=== PATIENT | male | born 1935 | race Caucasian/White ===

== ENCOUNTER 2023-10-28 09:44 | Day surgery (SDC) | payer MEDICARE, OTHER ==
--- NOTE | 2023-10-28 09:16 | HP ---
DATE OF SURGERY: 10/28/2023 HISTORY OF PRESENT ILLNESS: The patient is an 88-year-old with history of renal failure, on hemodialysis now and desires peritoneal dialysis access. PAST MEDICAL HISTORY: Renal failure. Cataracts. Hypertension. Thyroid disease. Gastroenteropathy. Osteoarthritis. Prostate problems. Diabetes mellitus type II. PAST SURGICAL HISTORY: Hernia repair. Cholecystectomy. Cataracts. MEDICATIONS: Insulin Detemir, levothyroxine, glipizide, finasteride, docusate sodium, artificial tears. ALLERGIES: AMMONIA. FAMILY HISTORY: Negative in regards to this problem. SOCIAL HISTORY: No smoking or alcohol abuse. REVIEW OF SYSTEMS: Twelve systems reviewed. No chest pain or palpitations. Other systems negative or noncontributory as above and per preadmission questionnaire. PHYSICAL EXAMINATION: Height 5 feet 10 inches. BMI 25.97. GENERAL: No acute distress. HEENT: Sclerae nonicteric. EOMI. Oral mucous membranes moist. NECK: No JVD. CHEST: Equal excursion, nonlabored breathing. CVS: Regular rate and rhythm. ABDOMEN: Soft. EXTREMITIES: No cyanosis or edema. NEURO: Alert, oriented, moving extremities symmetrically. PSYCH: Appropriate mood and affect. SKIN: Dry. IMPRESSION: Renal failure. Desires peritoneal dialysis access. I feel the patient is a candidate. Risks and benefits explained in detail but not limited to bleeding or infection, risk of trocar injury or hernia. Risk of bowel, bladder or blood vessel injury. Risk of adhesion, scar formation or obstruction. Risk of aches or pains possibly chronic, possible poor function or nonfunctioning catheter possibly requiring repositioning or replacement. Risk of catheter failing to work possibly requiring long-term hemodialysis. He understands and agrees to procedure. Will proceed with laparoscopic peritoneal dialysis catheter placement possible open as an outpatient. Otherwise, continue medication for hypertension, diabetes, thyroid disease and arthritis as an outpatient.
[~2023-10-28 09:44] MED LIST: Sensorcaine 0.25% 10 ML ONE
[2023-10-28] MEDS ORDERED: Nimbex 20MG/10 Ml Vial (HIGH RISK MED) IV ONE (09:45)
[2023-10-28] MEDS ORDERED: CEFAZOLIN 2 GM-D5W BAG** 2 GM/50 ML ML IV ONE (10:29)
[2023-10-28] MEDS ORDERED: Lactated Ringers 1,000 ML IV SCH (10:30)
[2023-10-28] MEDS: Sodium Chloride 0.9% 1000 ML 1,000 ML IV SCH (10:33)
[2023-10-28] MEDS: CEFAZOLIN 2 GM-D5W BAG** 2 GM/50 ML ML IV SCH (10:33)
[2023-10-28 10:50] VITALS: RESP 16
[2023-10-28 11:00] LABS: Absolute Neutrophil Ct (ANC) 4.96 x10^3/uL (1.4-6.9); BASOPHIL % 0.8 % (0.0-0.4); Basophil (Absolute #) 0.06 x10^3/uL (0-0.4); Eosinophil (Absolute #) 0.07 x10^3/uL (0-0.5); Hematocrit 31.8 % (42-50); Hemoglobin 10.2 g/dL (12.5-18.0); IMMATURE GRAN # 0.02 x10^3u/L (0.00-0.03); IMMATURE GRAN % 0.3 % (0.00-0.4); Lymphocytes % 20.5 % (24.0-44.0); Mean Cell Volume 98.5 fL (78-100); Mean Corpuscular Hemoglobin 31.6 pg (26-32); Mean Corpuscular Hgb Concent. 32.1 g/dL (32-36); Mean Platelet Volume 10.7 fL (7.5-11.0); Monocyte (Absolute #) 0.72 x10^3/uL (0.0-1.3); Monocytes % 9.8 % (0.0-12.0); Neutrophil % 67.6 % (36.0-66.0); Platelet Count 105 x10^3/uL (150-450); Red Blood Count 3.23 x10^6/uL (4.1-5.6); Red Cell Distribution Width 13.1 % (11.5-14.0); White Blood Count 7.3 x10^3/uL (4.0-10.5)
[2023-10-28 11:21] LABS: ALBUMIN 3.6 g/dL (3.5-5.0); ANION GAP 17.1 MEQ/L (5-15); BILIRUBIN,TOTAL 0.4 mg/dL (0.2-1.3); Calcium 8.5 mg/dL (8.4-10.2); Creatinine 1 7.14 mg/dL (0.66-1.25); EST GLOMERULAR FILTRATION RATE 6.8 ML/MIN; Potassium 4.9 mmol/L (3.5-5.1); Total Protein 7.2 g/dL (6.3-8.2)
[2023-10-28] MEDS ORDERED: SUBLIMAZE 100 MCG/2 ML ONE (12:16)
[2023-10-28] MEDS ORDERED: Decadron 4 MG INJ ONE (12:18)
[2023-10-28] MEDS ORDERED: Zofran 4 MG/2 ML VIAL ONE ×2 (12:18→13:42)
[2023-10-28] MEDS ORDERED: Amidate 20 MG/10 ML IV ONE (12:19)
[2023-10-28] MEDS ORDERED: ROBINUL ONE (12:24)
[2023-10-28] MEDS ORDERED: BACIGUENT 30 GM ONE (13:08)
[2023-10-28 14:11] VITALS: TEMP 96.9
[2023-10-28 14:47] VITALS: BP 146/78; PULSE 72; O2SAT 99
--- NOTE | 2023-10-29 08:54 | OP ---
SURGERY DATE/TIME: 10/28/2023 1233 PREOPERATIVE DIAGNOSIS: Renal failure on hemodialysis need for peritoneal dialysis access. POSTOPERATIVE DIAGNOSIS: Renal failure on hemodialysis need for peritoneal dialysis access. PROCEDURE: Laparoscopic placement of a tunneled peritoneal dialysis catheter. SURGEON: Dr. Dave Kimball. ANESTHESIA: General. ESTIMATED BLOOD LOSS: Minimal. INDICATIONS: As noted above. Risks and benefits explained in detail and not limited to and consent obtained. DESCRIPTION OF PROCEDURE AND FINDINGS: The patient is taken to the operating room. Once the patient was ready general anesthesia was induced. He was prepped and draped in usual sterile fashion. After official time out and no disagreement with planned procedure, a transverse incision made supraumbilical area. Fascia grasped and pulled upward. Veress needle inserted and tested with saline. Pneumoperitoneum accomplished opening pressure 0 to 15. A 5 mm bladeless port and camera inserted without difficulty in the left upper quadrant and with a 5 mm port. The pelvic cavity seemed to be wide open and it was felt he would benefit if we go ahead and placing the catheter. There was no evidence of any large hernia. He did have a little, tiny dimple on there on the left but no large hernia that warranted consideration of repair. The 8 mm port was then placed in the left lower quadrant direct tunneled through the rectus fascia down to the lower pelvis. The catheter was carefully placed lying in a nice free position. Internal cuff was at the level of the fascia. The external cuff was tunneled out through a lateral stab wound with the external cuff in the subcu. At this point, the tube clamped and the titanium connector were attached with the tube easily irrigated. It was in good position. The cap was applied. The catheter was secured 2.5 cm away from the exit site with 2-0 Prolene, some Bactroban and sterile dressing applied keeping the catheter off the skin. Pneumoperitoneum decompressed. Skin incision closed with 4-0 Vicryl. 0.25% Marcaine local injected along the skin incision and fascial defects staying away from the catheter itself. The patient tolerated the procedure well. Findings discussed with the family out in the waiting area.
== END 2023-10-28 15:05 | disposition home or self-care (01) ==
LOC: SDC 09:44
PROVIDERS: ATTEND Surgery
DX: N19 Unspecified kidney failure (principal); Z49.02 Encounter for fitting and adjustment of peritoneal dialysis catheter; E11.9 Type 2 diabetes mellitus without complications
CPT/HCPCS: 36415; 80053; 82947; 85025; 93005; J0690; J1100; J2405; J3010; A9270-GY

== ENCOUNTER 2024-02-03 09:17 | Day surgery (SDC) | payer OTHER ==
--- NOTE | 2024-02-03 07:37 | HP ---
HISTORY AND PHYSICAL HISTORY OF PRESENT ILLNESS: An 88-year-old using his peritoneal dialysis catheter now. Desires hemodialysis catheter out. PAST MEDICAL HISTORY: Hypertension, renal disease, thyroid disease, history of osteoarthritis, prostate issues, type 2 diabetes in the past. PAST SURGICAL HISTORY: Umbilical hernia repair, PD cath placement performed in the past, had a cataract surgery, had a cholecystectomy in the past. HOME MEDICATIONS: Insulin, sodium bicarbonate, Synthroid, glipizide, finasteride, docusate sodium, and artificial tears eyedrops. ALLERGIES: Ammonium lactate. SOCIAL HISTORY: No smoking or alcohol abuse. FAMILY HISTORY: Diabetes and lung cancer. REVIEW OF SYSTEMS: Twelve systems reviewed. No chest pain or palpitations. Other systems negative or noncontributory as above and per preadmission questionnaire. PHYSICAL EXAMINATION: GENERAL: Height 5 feet 10 inches, BMI 25.83. No acute distress. HEENT: Sclerae anicteric. NECK: No JVD. CARDIOVASCULAR: Regular rate and rhythm. RESPIRATORY: Equal excursion, nonlabored breathing. ABDOMEN: Soft. PD in place. EXTREMITIES: No cyanosis or edema. NEUROLOGIC: Alert and oriented, moving extremities symmetrically. PSYCHIATRIC: Appropriate mood and affect. SKIN: Dry. ASSESSMENT: He needs the Permacath out. He is using a peritoneal catheter. Risks explained in detail including but not limited to bleeding or infection, risk of hematoma or seroma formation, aches and pains, burning or numbness, risk of anesthesia, DVT, PE, pneumonia but not limited to. We will proceed with IV sedation and removal of tunneled hemodialysis catheter as an outpatient. Otherwise, continue his medications for arthritis, hypertension, thyroid disease, diabetes, and renal failure.
[2024-02-03] MEDS ORDERED: Lactated Ringers 1,000 ML IV ONE (09:38)
[2024-02-03] MEDS: Sodium Chloride 0.9% 1000 ML 1,000 ML IV SCH (09:43)
[2024-02-03] MEDS: D50W 50 ml Abboject IV ONE (10:18)
[2024-02-03] MEDS ORDERED: Sensorcaine 0.25% 10 ML ONE (10:38)
[2024-02-03] MEDS ORDERED: SUBLIMAZE 100 MCG/2 ML IV ONE (12:03)
[2024-02-03] MEDS ORDERED: VERSED 5 MG/5 ML IV ONE (12:03)
[2024-02-03 12:31] VITALS: PULSE 79; TEMP 97.3; O2SAT 97
[2024-02-03 12:43] VITALS: BP 111/68; RESP 16
--- NOTE | 2024-02-04 18:14 | OP ---
SURGERY DATE/TIME: 02/03/2024 1140 - 1220 PREOPERATIVE DIAGNOSIS: History of renal failure, using peritoneal dialysis now, no longer desiring hemodialysis catheter and need for removal. POSTOPERATIVE DIAGNOSIS: History of renal failure, using peritoneal dialysis now, no longer desiring hemodialysis catheter and need for removal. PROCEDURE: 1) Surgeon monitored intravenous sedation, more than 15 minutes. 2) Removal of tunneled hemodialysis catheter. SURGEON: David Kimball MD. ANESTHESIA: IV conscious sedation, as mentioned above, surgeon monitored. Local 1% lidocaine. ESTIMATED BLOOD LOSS: Minimal. INDICATIONS: As above, consent obtained. DESCRIPTION OF PROCEDURE AND FINDINGS: Patient was taken to the operating room on continuous pulse oximetry and blood pressure monitoring. He was incrementally sedated with IV fentanyl 50 mcg, IV Versed 2 mg, remained hemodynamically stable. He was on continuous pulse oximetry and blood pressure monitoring and on nasal O2. His chest was prepped in the usual sterile fashion. The cuff was not right at the exit site. After infiltrating 1% lidocaine local, the cuff was infiltrated with 1% lidocaine local around the cuff in the skin. A transverse incision was made, dissection carried down with the aid of cautery. The cuff was carefully dissected free from the surrounding tissue which it had grown into. It was finally able to be pulled free, passed off. The catheter was divided, the distal part was pulled out the exit tract with part of the cuff, was pulled up and discarded. The tunnel tract was closed with 3-0 Vicryl, skin incision closed with 4-0 Vicryl. Steri-Strips and sterile pressure dressing applied. Patient tolerated the procedure well. There were no immediate complications. Findings discussed with the family later when they became available in the waiting area.
== END 2024-02-03 13:00 | disposition home or self-care (01) ==
LOC: SDC 09:17
PROVIDERS: ATTEND Surgery
DX: Z45.2 Encounter for adjustment and management of vascular access device (principal); E11.9 Type 2 diabetes mellitus without complications; Z80.1 Family history of malignant neoplasm of trachea, bronchus and lung
CPT/HCPCS: 82947; J2250; J3010